=== PATIENT | male | born 1945 | race Caucasian/White ===

== ENCOUNTER 2022-11-02 14:50 | Emergency (ER) | payer MEDICARE, OTHER ==
[~2022-11-02] VITALS: Ht 180.3 cm; Wt 113.6 kg
[~2022-11-02 14:50] MED LIST: AMLO5TAB PO; APIX5TAB3 PO; CHOL400C8 PO; ESCI-8 PO; FISH1CAP15 PO; LOSA100T57 PO; METF-516 PO; MULT-1085 PO; OMEP40CA21 PO; PRAV80TA3 PO
[2022-11-02 15:21] VITALS: BP 121/67
[2022-11-02] MEDS ORDERED: ketorolac tromethamine 15mg/ml inj. IM ONE (16:15)
[2022-11-02] MEDS ORDERED: IBUP-1984 PO (16:15)
[2022-11-02] MEDS ORDERED: METH4TAB3 PO (16:15)
[2022-11-02] MEDS ORDERED: orphenadrine citrate 60mg/2ml inj. IM ONE (16:15)
[2022-11-02] MEDS ORDERED: CYCL-1 PO (16:15)
== END 2022-11-02 16:42 | disposition home or self-care (01) ==
LOC: ER 14:51
DX: S39.012A Strain of muscle, fascia and tendon of lower back, initial encounter (principal); E11.9 Type 2 diabetes mellitus without complications; X58.XXXA Exposure to other specified factors, initial encounter; Y93.89 Activity, other specified; Y92.89 Other specified places as the place of occurrence of the external cause; Y99.8 Other external cause status
CPT/HCPCS: 96372; 99284; J1885; J2360